=== PATIENT | male | born 1980 | race Caucasian/White ===

== ENCOUNTER 2017-01-03 05:40 | Day surgery (SDC) | payer OTHER ==
[~2017-01-03] VITALS: Ht 179.1 cm; Wt 101.9 kg
[2017-01-03] VITALS (14 sets, daily range): BP systolic 125–174; BP diastolic 68–107; PULSE 62–102; RESP 14–24; O2SAT 91–97
[~2017-01-03 05:40] MED LIST: FLUO20CA25 PO
[2017-01-03] MEDS ORDERED: Ondansetron 2 mg/mL 2 mL Inj ONE (05:41)
[2017-01-03] MEDS ORDERED: Propofol 10,000 mCg/mL 20 mL Inj ONE (05:41)
[2017-01-03] MEDS ORDERED: fentaNYL-PF 50 mCg/mL 2 mL Inj ONE (05:41)
[2017-01-03] MEDS ORDERED: Rocuronium 10 mg/mL 5 mL Inj ONE (05:41)
[2017-01-03] MEDS ORDERED: Ketamine 10 mg/mL 20 mL Inj ONE (05:41)
[2017-01-03] MEDS ORDERED: Dexamethasone 4 mg/mL Inj ONE (05:41)
[2017-01-03] MEDS: Lactated Ringer's 1,000 ML IV SCH ×2 (05:42→08:02)
[2017-01-03] MEDS ORDERED: Lactated Ringer's 500 ML IV PRN (07:08)
[2017-01-03] MEDS ORDERED: Lactated Ringer's 1,000 ML IV SCH (07:08)
--- NOTE | 2017-01-03 07:08 | PCM.HPANE ---
Patient Data Surgeon Admitting Provider: Attending Provider:Virgilio Haines MD Primary Care Physician:Shira Ramsay MD Other Provider:[facility] Reason for Visit Multiple Endocrine Neoplasms 1 Ht/WT & BMI Height (Feet): 5 Height (Inches): 10.50 Weight (Kilograms): 101.9 Body Mass Index 31.00 Allergies Coded Allergies: Penicillins (Verified Allergy, Unknown, hives, 12/30/16) Past Anesthesia History Anesthesia History: Denies:: Abnormal Airway, Anesthesia Reactions, Difficult Intubation, Fam Anesthesia Reaction Diabetes History Hx Diabetes?: No Current Bedside Blood Glucose: 93 MRSA MRSA: No Medications Hypertension Medication: No Home Meds Incl Beta Marilee: No Reported Medications Fluoxetine 20 Mg [id number] Mg PO DAILY Ref 0 12/30/16 History HEENT History: Denies:: Abnormal Airway Cataracts Difficult Intubation Dysphagia Glaucoma Hearing Problem Sinus Problem TMJ Cardiovascular History: Denies:: AICD Abdominal Aortic Aneurism Atrial Fibrillation Chest Pain Edema Heart Murmur Hypertension Irregular Heartbeat Pacemaker Peripheral Vascular Rheumatic Fever Hx of Respiratory Problem?: No Respiratory History: Denies:: Asthma COPD Emphysema Oxygen Administration Pneumonia Tuberculosis Use of C-PAP Machine Use of Inhalers / NEBS Hx Neurologic Problems?: No Neurological History: Denies:: Alzheimer's Disease CVA Dementia Dizziness Headaches Multiple Sclerosis Parkinson's Disease Seizures Other Neurological Pertinent: restless leg syndrome Hx of GI Problems?: Yes Gastrointestinal History: Positive for:: Gastroesphageal Reflux (otc tums- one to two times daily) Heartburn Denies:: Cirrhosis Gall Bladder Disease Gastrointestinal Bleeding Hepatitis Hiatal Hernia Liver Disease Hx of Problems?: Yes Genitourinary History: Positive for:: Kidney Stones (past hx of, passed spontaneously) Denies:: Urinary Tract Infection Male Hx: Denies:: Prostate Problems Scrotal Mass Testicular Surgery Skin History: Denies:: History Skin Disorders? Pressure Ulcers Hx Musculoskeletal Problems?: No Musculoskeletal History: Denies:: Back Injury Fibromyalgia Musculoskeletal Trauma Osteoarthritis Hx of Psycho/Social Problems?: Yes Psycho Social History: Positive for:: Anxiety Hx Depression Hx Surgeries?: No (wisdom teeth) Hx Any Other Health Problems?: Yes Other History: Positive for:: Thyroid Disease (parathyroid current admission problem) Denies:: Cancer History Blood Transfusions: Positive for:: Accept Blood Products? Denies:: Blood Transfusions Hx Diabetes: NoBedside Blood Glucose: 93 Hx Alcohol Use: YesAlcoholic Drinks Per Day: 2-3 drinks weeklyHx Substance Use : Yes (inhaled, daily)Have You Smoked inLast 12 mo: Yes (one half pack daily) Stop/Bang S-Snoring: Do You Snore Loudly: No T-Tired: feel tired, fatigued: No O-Obsered: Observed not breath: No P-Blood Pressure: treated: No B- Body Mass Index > 35 kg/m2: No A- Age over 50: No N- Neck Large Circumference: No G- Gender Male: Yes MARISSA Total Score: 1 MARISSA Risk Assessment: Low Risk, <3 Yes Risk Assessment Category Category 1A: Patient has history of documented sleep apnea, and HAS NOT received any narcotic, sedative or anesthesia administration during this stay. Category 1B: Patient has history of documented sleep apnea, and HAS received any narcotic , sedative or anesthesia administration during this stay Category 2: Patient has SUSPECTED Obstructive Sleep Apnea, and HAS received any narcotic , sedative or anesthesia administration during this stay. Category 3: Patient has SUSPECTED Obstructive Sleep Apnea and HAS NOT received narcotic, sedative or anesthesia administration during this stay. Category 4: Outpatient in Procedural Areas with known sleep apnea or who screen positive for High Risk via the STOP/BANG questionnaire. Exam Exam Vital Signs Vital Signs Date Time Temp Pulse Resp B/P Pulse Ox O2 Delivery O2 Flow Rate FiO2 01/03/17 06:14 36.3 62 18 125/68 95 Room Air General Appearance: Alert, Oriented X3, Cooperative, No Acute Distress HEENT/AIRWAY: MP 2 Lungs: Clear to Auscultation, Normal Air Movement Heart: Exam Unremarkable, Regular Rate/Rhythm, No Murmurs/Rubs/Gallops Meds/Labs/Diagnostics Admission Meds Current Medications Lactated Ringer's (Lr) 1,000 ml @ 120 mls/hr [id number] IV Last administered on t 05:42; Start 01/03/17 at 05:00; Stop 01/03/17 at 13:19 Bedside Blood Glucose: 93 Plan Impression Patient chart reviewed, patient interviewed and anesthestic plan with risks, benefits, and alternatives discussed, and informed consent obtained. NPO Status: [id number] ASA Physical Status: ASA2 Mod Systemic Disease Anesthetic Plan: GA Bene/Risks/Altern/Consents: Yes HP Complete Prior to Induction: Yes Trevor Davis MD Jan 03, 2017 07:08
[2017-01-03] MEDS ORDERED: fentaNYL-PF 50 mCg/mL 2 mL Inj IVPUSH PRN (07:10)
[2017-01-03] MEDS ORDERED: Phenylephrine 10,000 mCg/mL Inj IVPUSH PRN (07:10)
[2017-01-03] MEDS ORDERED: EPHEDrine Sulfate 50 mg/mL Inj IVPUSH PRN (07:10)
[2017-01-03] MEDS ORDERED: Dexamethasone 4 mg/mL Inj IVPUSH PRN (07:10)
[2017-01-03] MEDS ORDERED: Ondansetron 2 mg/mL 2 mL Inj IVPUSH PRN (07:10)
[2017-01-03] MEDS ORDERED: Bupivacaine-MPF 0.5% W/EPI 30 mL Inj INFILTRATE ONE (08:01)
[2017-01-03] MEDS ORDERED: HYDROcodone-APAP 5-325 mg Tablet PO PRN (10:05)
[2017-01-03] MEDS: MetoCLOpramide 5 mg/mL 2 mL Inj IVPUSH PRN ×2 (10:27→12:00)
[2017-01-03] MEDS ORDERED: HYDROmorphone 0.5 mg/0.5 mL iSecure Syringe ONE (10:42)
--- NOTE | 2017-01-03 10:43 | PCM.ANEP1 ---
Post Anesthesia Phase 1 PACU Phase 1 Assessment Vital Signs Vital Signs Date Time Temp Pulse Resp B/P Pulse Ox O2 Delivery O2 Flow Rate FiO2 01/03/17 10:35 84 23 154/82 94 Nasal Cannula 2 01/03/17 10:30 87 24 159/96 93 Nasal Cannula 2 01/03/17 10:25 98 19 158/103 91 Room Air 01/03/17 10:20 102 18 174/104 91 Room Air 01/03/17 10:15 94 19 168/107 97 Simple Mask 8 01/03/17 10:10 98 19 169/105 96 Simple Mask 8 01/03/17 10:07 36.8 89 18 160/96 96 Simple Mask 8 01/03/17 06:14 36.3 62 18 125/68 95 Room Air Anesthetic Administered: GA Level of Alertness: Awake, talking WILLAMS's with Equal Strength: Yes Pain: No Nausea or Vomiting: No Oxygen Delivery: Simple Mask Lungs: Clear to Auscultation, Normal Air Movement Dermatome Level: Full Sensation Trevor Davis MD Jan 03, 2017 10:43
[2017-01-03] MEDS: HYDROmorphone 1 mg/mL Inj IVPUSH PRN ×2 (10:45→10:56)
--- NOTE | 2017-01-03 10:53 | PCM.ANEP2 ---
Post Anesthesia Evaluation ASA/CMS Post Anesthesia VS in Patient's Normal Range?: Yes Resp Stable; Airway Patent?: Yes CV Function & Hydration Stable: Yes Mental Status Recovered?: Yes Pain control Satisfactory?: Yes N/V Control Satisfactory?: Yes Trevor Davis MD Jan 03, 2017 10:53
--- NOTE | 2017-01-03 19:59 | OP ---
[address] [address] OPERATIVE REPORT PATIENT: NIKO HARO : 1980 MR#: [id number] ADMIT: 01/03/2017 JOB ID: [id number] DATE OF SURGERY: 01/03/2017 PREOPERATIVE DIAGNOSIS(ES): 1. Hyperparathyroidism. 2. Multiple endocrine neoplasia-1. POSTOPERATIVE DIAGNOSIS(ES): 1. Right superior parathyroid adenoma. 2. Left superior parathyroid adenoma. 3. Left inferior parathyroid hyperplasia versus adenoma. 4. Right inferior parathyroid adenoma. OPERATION: Parathyroid exploration with 3-1/2 gland excision with frozen section and intraoperative parathyroid hormone levels. SURGEON: Virgilio Haines MD. DIEING OUT MACHINE OPERATOR: Ryan Johansen MD. The patient is a 36-year-old man who has MEN-1. His father, three paternal aunts, and two sisters all have parathyroid adenomas. He has had elevated calcium and PTH levels and has a history of kidney stones. May also have a history of depression. His preoperative imaging, including a parathyroid scan and a parathyroid CT scan, showed two parathyroid adenomas, posterior to each lobe. After discussing options with the patient, it was elected to proceed with a four-gland exploration and possible 3-1/2 gland excision, possible transplantation. FINDINGS: All four glands were identified. All four were abnormal grossly. The superior glands were the largest and grossly most abnormal. The inferior glands were also abnormal, but the right inferior appeared to be the smallest. The frozen section confirmed parathyroid tissue in all of them. It did porcelain turner that the left inferior, which I completely removed, did have some residual fat. I did do intraoperative PTH levels. The highest was 131, and after 3-1/2 gland excision, the PTH was 48 at 5 minutes and 53 at 10 minutes. Calcium from the recovery room is pending at the time of this dictation. The remaining gland is half of the right inferior. It is attached to the inferior pole of the thyroid on it's lateral side. I left a Prolene suture just anterior to that gland. PROCEDURE: At the beginning and end of the operation, the SCOAP checklist was completed. A general endotracheal anesthetic was induced. His neck was extended, and using ChloraPrep, prepped and draped in the usual fashion. His incision was designed and infiltrated with 0.5% bupivacaine with epinephrine. A collar incision was made, and using cautery, the platysma was divided and subplatysmal flaps were then created. The strap muscles were identified and midline with cautery. The left side was explored first. After exposing the right lobe, I was able to mobilize the inferior pole and rotate it medially. Right behind the hilum of the left, I could appreciate what proved to be the left superior gland, but it turned out, it was easiest to expose from the superior side of the hilum. With careful dissection and using bipolar, it was removed and placed in the saline. I then explored the left inferior pole, and in some fatty tissue just below the inferior pole, I found the left inferior gland, and at that point, I just placed a Prolene suture for ease of identifying it later in the case. Attention was then turned to the right side. The strap muscles were mobilized off the right thyroid lobe and the right inferior pole was mobilized medially and the right superior gland was easily identified and obviously enlarged and was carefully dissected out, and with bipolar cautery, its pedicle was divided. Searching for the right inferior gland, I initially did not find it in the fatty tissue symmetric to where I found the left side, but it was directly attached to the inferior tip of the right thyroid lobe. A frozen section of that tissue confirmed it to be parathyroid tissue. It looked smaller than the left inferior and so I chose to remove completely the left inferior and half of the right inferior. I should state that prior to removing any parathyroid tissue, a baseline PTH was obtained, and the highest of the two was 131. After making the decision to leave half of the right inferior gland in situ, I grossly removed half of it, and then at 5 and 10 minutes, obtained parathyroid hormone levels which were 48 and 53, respectively. I placed a 4-0 Prolene suture immediately adjacent, and as described above, anterior to the remaining portion of the right inferior parathyroid gland. Hemostasis was confirmed. At no time was there any neural structure felt to be in danger. The estimated blood loss was 10 cc or less. No apparent complications. Frozen section of the parathyroid tissue removed and all being abnormal, as stated above. But with normal parathyroid hormone levels, I elected to conclude the operation. The strap muscles were reapproximated in midline with 3-0 Vicryl. The platysma closed with 3-0 Vicryl. The skin with subcuticular 4-0 Vicryl and Dermabond. Estimated blood loss less than 10 cc. No apparent complications. The final sponge, needle and instrument counts were announced as correct and the patient was returned to recovery room in stable condition. Critical assistance provided by MD LENKA Peck
== END 2017-01-03 23:59 | disposition home or self-care (01) ==
LOC: SAS 05:40
PROVIDERS: ATTEND Surgery
DX: E31.21 Multiple endocrine neoplasia [MEN] type I (principal); E21.0 Primary hyperparathyroidism; G25.81 Restless legs syndrome; K21.9 Gastro-esophageal reflux disease without esophagitis; F32.9 Major depressive disorder, single episode, unspecified; F41.9 Anxiety disorder, unspecified; F17.210 Nicotine dependence, cigarettes, uncomplicated; Z87.442 Personal history of urinary calculi
CPT/HCPCS: 36415; 60500; 82310; 83970; J1100; J1170; J2250; J2405; J2765; J3010; J7120